=== PATIENT | female | born 1965 | race Caucasian/White ===

== ENCOUNTER 2020-11-06 17:30 | Outpatient (CLI) | payer OTHER, SELFPAY ==
--- NOTE | ~2020-11-06 | MM_ITS ---
EXAMINATION: MM screening [facility] BI w evelin HISTORY: Screening mammogram TECHNIQUE: Craniocaudal and mediolateral oblique 3-D tomosynthesis images were obtained and synthetic 2-D images were generated. CAD analysis was submitted and interpreted. COMPARISON: 10/04/2017, 03/03/2015, 02/07/2014 BREAST PARENCHYMAL COMPOSITION: The breasts are almost entirely fatty. FINDINGS: There is no evidence of suspicious mass, calcification, or architectural distortion to sugg est malignancy in either breast. There has been no suspicious interval change. IMPRESSION: 1. No mammographic evidence of malignancy. 2. Recommend routine screening mammography in one year. BI-RADS Category 1: Negative Reviewed, dictated and finalized at location A.
== END 2020-11-06 17:31 | disposition home or self-care (01) ==
LOC: ANHIMG 17:35
PROVIDERS: PCP Family Medicine; Visit Provider Obstetrics & Gynecology
DX: Z12.31 Encounter for screening mammogram for malignant neoplasm of breast (principal)
CPT/HCPCS: 77063; 77067

== ENCOUNTER 2022-02-26 17:09 | Emergency (ER) | payer OTHER, SELFPAY ==
--- NOTE | ~2022-02-26 | XR_ITS ---
XR ankle RT min 3V 02/26/2022 17:24 INDICATION: Right ankle pain after recent fall PROCEDURE: 4 views right ankle COMPARISON: No prior studies for comparison. FINDINGS: Fracture, dislocation or subluxation is not identified. There are degenerative calcaneal en thesophytes. Talar dome is unremarkable. The soft tissues appear within normal limits. No foreign bernarda dies are identified. IMPRESSION: 1: NO ACUTE BONE OR JOINT ABNORMALITY IDENTIFIED. Reviewed, dictated and finalized at location A.
[2022-02-26 17:07] VITALS: BP 159/84; PULSE 76; RESP 18; TEMP 36.9; O2SAT 99
--- NOTE | 2022-02-26 17:16 | ED_ITS ---
HPI - Extremity Injury (Lower) General Chief Complaint: Extremity Injury, Lower Stated Complaint: fall - ankle pain Time Seen by Provider: 02/26/22 17:11 History of Present Illness HPI Narrative: 56-year-old female presents to the emergency room for evaluation of right ankle pain. Patient states that she stepped on a large rock outside of her place of employment and felt a popping sensation. Patient dates she is unable to walk following the injury. Pain is worse with attempting to ambulate or put pressure on the foot. Pain radiates into her foot. Related Data Allergies Allergy/AdvReac Type Severity Reaction Status Date / Time ciprofloxacin Allergy Unknown Nervousness Unverified 02/26/22 17:33 meperidine AdvReac Mild NAUSEA Verified 02/26/22 17:33 Review of Systems Review of Systems: CONSTITUTIONAL: Denies fever, chills, or sweats. EYES: Denies visual changes, redness, or discharge. ENT: Denies rhinorrhea, congestion, sore throat, or otalgia. CARDIOVASCULAR: Denies chest pain, palpitations, or edema. RESPIRATORY: Denies cough or dyspnea. GASTROINTESTINAL: Denies abdominal pain, nausea, vomiting, or diarrhea. GENITOURINARY: Denies dysuria or hematuria. SKIN: Denies rash or itching. MUSCULOSKELETAL: Reports right ankle pain NEUROLOGIC: Denies headache, numbness, dizziness, or weakness. PSYCHIATRIC: Denies anxiety or depression. Exam Narrative: GENERAL: Well-appearing, well-nourished, no physical limitations, and in no acute distress. HEAD: Normocephalic, atraumatic. EYES: Conjunctivae normal, PERRLA and EOMI. CHEST: Clear to auscultation. No respiratory distress. No wheezes rales or rhonchi. HEART: Regular rate and rhythm. No murmur heard. Normal peripheral pulses. EXTREMITIES: Right ankle: +TTP and STS to lateral malleolus. No obvious bony abnormality. Neurovascular is intact distally. Range of motion is limited due to pain SKIN: Warm, dry, no rash. No noted wounds NEURO: No focal deficits. Alert and oriented x3. MAEW. CN's II-XI intact bilaterally PSYCH: Cooperative. Normal mood and affect. Course Vital Signs Vital signs: Vital Signs Temperature 36.9 C 02/26/22 17:07 Pulse Rate 76 02/26/22 17:07 Respiratory Rate 18 02/26/22 17:07 Blood Pressure 159/84 H 02/26/22 17:07 Pulse Oximetry 99 02/26/22 17:07 Oxygen Delivery Room Air 02/26/22 17:07 Temperature 36.9 C 02/26/22 17:07 Pulse Rate 76 02/26/22 17:07 Respiratory Rate 18 02/26/22 17:07 Blood Pressure 159/84 H 02/26/22 17:07 Pulse Oximetry 99 02/26/22 17:07 Oxygen Delivery Room Air 02/26/22 17:07 Discharge Plan Discharge Clinical Impression: Ankle sprain and strain Patient Disposition: Home, Self-Care Condition: Stable Instructions: Antibiotic Form Additional Instructions: Recommend obtaining a boot from [facility]. Wear the boot for comfort. If your pain does not begin to improve the end of next week, follow-up with orthopedics. Prescriptions: New naproxen 500 mg tablet 500 mg PO BID Qty: 20 0RF Follow-up/Referrals: Jesus Wisdom MD [Primary Care Provider] - Dharmesh Sibley MD [Physician] - Time of Disposition: 17:31
[2022-02-26] MEDS: KETOROLAC 30 MG/ML VIAL (*BKC) IV PUSH (17:35)
== END 2022-02-26 18:03 | disposition home or self-care (01) ==
PROVIDERS: Emergency Provider Nurse Practitioner Family; PCP Family Medicine
DX: S93.401A Sprain of unspecified ligament of right ankle, initial encounter (principal); X50.0XXA Overexertion from strenuous movement or load, initial encounter
CPT/HCPCS: 73610; 96374; 99284; J1885

== ENCOUNTER 2022-09-17 12:59 | Outpatient (CLI) | payer OTHER, SELFPAY ==
--- NOTE | ~2022-09-17 | MMUS_ITS ---
EXAMINATION: MM diagnostic [facility] BI w evelin, US breast LT limited HISTORY: Left breast pain behind nipple, possible left breast lump at 6:00 TECHNIQUE: ML, MLO and CC 3-D tomosynthesis images of both breasts were performed and synthetic 2-D i mages were generated. CAD analysis was submitted and interpreted. High resolution targeted left breas t ultrasound examination. Clinical complaint was performed. COMPARISON: 11/06/2020, 10/04/2017, 03/03/2015 bilateral screening mammogram examinations BREAST PARENCHYMAL COMPOSITION: The breasts are almost entirely fatty. FINDINGS: MAMMOGRAPHIC FINDINGS: No suspicious mass or architectural distortion, malignant calcification, skin thickening or retractio n or significant new or developing density is detected. ULTRASOUND: Real-time imaging was performed at the area of clinical complaint by patient of left breast lump at 6 :00. No suspicious mass or shadowing or other significant abnormality detected at this location. IMPRESSION: 1. No mammographic evidence of malignancy 2. Routine annual mammographic screening is recommended BI-RADS Category 1: Negative Reviewed, dictated and finalized at location A. IMPRESSION: 1. No mammographic evidence of malignancy 2. Routine annual mammographic screening is recommended BI-RADS Category 1: Negative
== END 2022-09-17 13:00 | disposition home or self-care (01) ==
LOC: ANHIMG 13:01
PROVIDERS: PCP Physician Assistant; Visit Provider Obstetrics & Gynecology
DX: N64.4 Mastodynia (principal)
CPT/HCPCS: 76642; 77062; 77066; G0279

== ENCOUNTER 2024-06-04 00:23 | Day surgery (SDC) | payer OTHER, SELFPAY ==
[2024-05-18 10:11] VITALS: BMI 40.2
[2024-06-04 13:28] VITALS: BP 144/77; PULSE 72; RESP 18; TEMP 35.9; O2SAT 97
[2024-06-04] MEDS: LACTATED RINGERS 1,000 ML 150 ML IV CONT (13:45)
--- NOTE | 2024-06-04 14:09 | P.PNAN_ITS ---
Anes - Initial Pre Proc Eval Procedure: Operation Date: 06/04/24 14:30 Proposed Procedures p Screening Colonoscopy - Fahad Zamorano MD Date/Time: 06/04/24 14:09 Surgeon: Fahad Zamorano MD Pre Op Diagnosis: screening colon, screening rectum Patient Data Age: 58 Gender: F Height: 1.6 m Weight: 100.4 kg Last Vital Signs Temp 96.6 F L 06/04/24 13:28 Pulse 72 06/04/24 13:28 Resp 18 06/04/24 13:28 BP 144/77 H 06/04/24 13:28 Pulse Ox 97 06/04/24 13:28 O2 Del Method Room Air 06/04/24 13:28 Allergies Allergy/AdvReac Type Severity Reaction Status Date / Time ciprofloxacin Allergy Unknown Nervousness Verified 06/04/24 13:25 meperidine AdvReac Mild NAUSEA Verified 06/04/24 13:25 Home Medications ?Medication ?Instructions ?Recorded ?Confirmed ?Type cetirizine 10 mg tablet 10 mg PO DAILY #90 tabs 07/13/22 06/04/24 Rx EstroGel 1.25 gram/actuation 1.25 g topical DAILY #50 grams 01/06/24 06/04/24 Rx (0.06%) transdermal gel pump (estradiol) escitalopram oxalate 10 mg tablet See Rx Instructions .Route 01/06/24 06/04/24 Rx .COMPLEX #90 tabs hydrochlorothiazide 12.5 mg tablet See Rx Instructions .Route 01/06/24 06/04/24 Rx .COMPLEX #90 tabs trospium 20 mg tablet See Rx Instructions .Route 01/06/24 06/04/24 Rx .COMPLEX #90 tabs Patient hx anesthesia problems: none Family hx anesthesia problems: none Results Review: All pre-operative results and documents have been reviewed as part of the pre- operative evaluation. [facility] Past Medical History Medical History Generalized anxiety disorder Hot flashes Hypertension Migraines Obstructive sleep apnea syndrome Prediabetes Stress incontinence of urine Surgical History Surgical History History of delivery 1989 History of removal of cyst R thumbnail 1975 Hx laparoscopic cholecystectomy 10/2007 S/P [facility] (total abdominal hysterectomy) 2012 Family History Family History Father Acute myocardial infarction Heart disease Mother Diabetes mellitus Grandparent Heart disease Social History Social History Smoking status: Never smoker Alcohol intake: current Drinks per week: 4 Substance use: current Substance use type: marijuana Lack of Transportation: No Lack of Food: Never True Current Housing: I Have Housing Concerned About Future Housing: No Difficulty Paying Gas/Electric Bills: No Difficulty Paying for Meds: No Currently Unemployed: No Education: Trade/Vocational Certificate Difficulty w/ Childcare or Family Care: No Living arrangements: with family Occupation/Education: occupation Gender identity (if verbalized by the patient): Female Sexual Orientation (if Verbalized by the Patient): Straight or Heterosexual Spiritual care concerns: No Anes - Eval Final PreProcedure Day of Procedure 06/04/24 14:09 Patient weight: morbidly obese Heart: regular rate and rhythm Lungs: clear to auscultation Airway: Mallampati scale class II Neurological: alert and oriented Last oral intake: >/= 8 hours ASA classification: III Emergent: no Anesthetic plan: proceed Anesthesia type and monitoring: general GIVS and standard monitoring Results Review: All pre-operative results and documents have been reviewed as part of the pre- operative evaluation. Informed Consent: The patient's anesthetic plan and its attendant risks and benefits were discussed with the patient/family/POA. Questions were solicited and answers provided to the satisfaction of the patient/family/POA.
--- NOTE | 2024-06-04 14:13 | PM.HPGS ---
History of Present Illness History of Present Illness Consent: Risks, benefits, and alternatives have been discussed and questions answered. Patient agrees to proceed with procedure. Chief complaint: screening colon Narrative: Linn Gamez is a 58 year old female here for colonoscopy, half brother had colon cancer and last colonoscopy ~ 8 years ago Review of Systems Review of Systems: All systems reviewed & are unremarkable except as noted in HPI and below PMFSH Past Medical History Medical History (Updated 06/04/24 @ 14:14 by Fahad Zamorano MD) Family history of colon cancer Stress incontinence of urine Obstructive sleep apnea syndrome Hot flashes Migraines Generalized anxiety disorder Prediabetes Hypertension Surgical History Surgical History S/P [facility] (total abdominal hysterectomy) 2012 Hx laparoscopic cholecystectomy 10/2007 History of removal of cyst R thumbnail 1975 History of delivery 1989 Family History Family History Father Acute myocardial infarction Heart disease Mother Diabetes mellitus Grandparent Heart disease Social History Social History Smoking status: Never smoker Alcohol intake: current Drinks per week: 4 Substance use: current Substance use type: marijuana Lack of Transportation: No Lack of Food: Never True Current Housing: I Have Housing Concerned About Future Housing: No Difficulty Paying Gas/Electric Bills: No Difficulty Paying for Meds: No Currently Unemployed: No Education: Trade/Vocational Certificate Difficulty w/ Childcare or Family Care: No Living arrangements: with family Occupation/Education: occupation Gender identity (if verbalized by the patient): Female Sexual Orientation (if Verbalized by the Patient): Straight or Heterosexual Spiritual care concerns: No Meds Home Medications and Allergies Home Medications ?Medication ?Instructions ?Recorded ?Confirmed ?Type cetirizine 10 mg tablet 10 mg PO DAILY #90 tabs 07/13/22 06/04/24 Rx EstroGel 1.25 gram/actuation 1.25 g topical DAILY #50 grams 01/06/24 06/04/24 Rx (0.06%) transdermal gel pump (estradiol) escitalopram oxalate 10 mg tablet See Rx Instructions .Route 01/06/24 06/04/24 Rx .COMPLEX #90 tabs hydrochlorothiazide 12.5 mg tablet See Rx Instructions .Route 01/06/24 06/04/24 Rx .COMPLEX #90 tabs trospium 20 mg tablet See Rx Instructions .Route 01/06/24 06/04/24 Rx .COMPLEX #90 tabs Allergies Allergy/AdvReac Type Severity Reaction Status Date / Time ciprofloxacin Allergy Unknown Nervousness Verified 06/04/24 13:25 meperidine AdvReac Mild NAUSEA Verified 06/04/24 13:25 Vital Signs Vital Signs - 24 hr 06/04/24 13:28 Temperature 96.6 F L Pulse Rate 72 Respiratory Rate 18 Blood Pressure 144/77 H Pulse Oximetry 97 Oxygen Delivery Room Air Exam Const: General: comfortable and no acute distress HENMT: Face/Nose/Sinus: Normal nares present Eyes: General: appearance normal, both eyes and all related structures Neck: Neck: no JVD Resp: Auscultation: clear to auscultation bilaterally Cardio: Rate: regular rate Rhythm: regular rhythm GI: Inspection: non-distended GI Palp: Yes Soft to palpation Skin: General skin exam: normal color Neuro: General: gait normal Speech: normal speech Extrem: General: normal to inspection Psych: Mental Status: mental status grossly normal Assessment and Plan Assessment and plan (1) Family history of colon cancer: Code(s): Z80.0 - Family history of malignant neoplasm of digestive organs Status: Acute Assessment and Plan: colonoscopy
[2024-06-04 14:40] VITALS: BP 119/52; PULSE 62; RESP 25; O2SAT 97
[2024-06-04 14:50] VITALS: BP 129/73; PULSE 63; RESP 17; O2SAT 100
[2024-06-04 15:00] VITALS: BP 125/62; PULSE 60; RESP 16; O2SAT 99
== END 2024-06-04 15:10 | disposition home or self-care (01) ==
PROVIDERS: PCP Family Medicine; Referring Provider Physician Assistant; Visit Provider Internal Medicine Gastroenterology
PROC: 0DJD8ZZ Inspection of Lower Intestinal Tract, Via Natural or Artificial Opening Endoscopic (ICD-10-PCS; CPT 45378; principal; 2024-06-04 14:30)
DX: Z12.11 Encounter for screening for malignant neoplasm of colon (principal); R73.03 Prediabetes; I10 Essential (primary) hypertension; N39.3 Stress incontinence (female) (male); G47.33 Obstructive sleep apnea (adult) (pediatric); F41.9 Anxiety disorder, unspecified; F12.90 Cannabis use, unspecified, uncomplicated; E66.01 Morbid (severe) obesity due to excess calories; Z68.39 Body mass index [BMI] 39.0-39.9, adult; Z98.890 Other specified postprocedural states; Z90.49 Acquired absence of other specified parts of digestive tract; Z80.0 Family history of malignant neoplasm of digestive organs; Z82.49 Family history of ischemic heart disease and other diseases of the circulatory system
CPT/HCPCS: 45378; J2003; J2704; J7120

== ENCOUNTER 2024-08-24 14:20 | Outpatient (CLI) | payer OTHER, SELFPAY ==
--- OUTSIDE RECORDS SUMMARY | 2024-08-24 14:22 | XMS_ITS | Clinical Summary ---
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 Phone Unavailable Primary Care Provider Unavailabl e Social History Tobacco Use Types Packs/Day Years Used Date Smoking Tobacco: Never Assessed Comments Unknown Sex and Gender Information Value Date Recorded Sex Assigned at Not on file Legal Sex Female 7:10 PM CDT Gender Identity Not on file Sexual Orientation Not on file Plan of Treatment Health Maintenance Due Date Last Done Comments Cervical Cancer Screening Pa p Smear (Age 30 to 64) Every 3 Years 1966 Colorectal Cancer Screening Colonoscopy (10 Years) 1966 Annual Physical 1969 Hepatitis C 1984 DTaP, Tdap and Td Vaccines ( 1 - Tdap) 1985 Hepatitis B Vaccines (1 of 3 - 19+ 3-dose series) 1985 Cervical Cancer Screening Pa p with HPV Testing (Age 30 to 64) Every 5 Years 1996 Cervical Cancer Screening with HPV 1996 Mammogram Screening 2006 Zoster Vaccines (1 of 2) 2016 COVID-19 Vaccine (2023-2 5 season) 2024 Influenza Adult (#1) 2024 Meningococcal B Vaccine Aged Out No l onger eligible based on patient's age to complete this topic Meningococcal Vaccine Aged Out No shahzad delores eligible based on patient's age to complete this topic Pneumococcal Vaccine: Pediat rics (0 to 5 Years) and At-Risk Patients (6 to 64 Years) Aged Out No longer eligible b ased on patient's age to complete this topic RSV Immunizations Under 20 Months Aged Out No longer eligible based on patient's age to complete this topic
--- OUTSIDE RECORDS SUMMARY | 2024-08-24 14:22 | XMS_ITS | Continuity of Care Document ---
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, [address], [place], [place], [id number], [place] tel:[phone] [facility] No Information [phone] Nancie Bonilla. [address] , [address], [place], [address], [place]. tel:[phone] Family History Family Member Type Diagnosis Age At Onset No Information Payers Payer name Insurance type Covered democrat ID Authoriza tion(s) No Information Social History Type Description Quantity Date Captured Comments Sex Female Smoking Status No Information Chief Complaint And Reason For Visit No Information Reason For Referral Reason For Referral No Information History Of Present Illness Encounter Date Complaint History Of Prese nt Illness No Information Functional Status Date Functional Assessmen t No Information Instructions Date Instruction Additional Infor mation No Information Assessments Type Assessment Date No Information Patient Care Teams Name Effective Dates (start - stop) Status Members No Information
== END 2024-08-24 14:21 | disposition home or self-care (01) ==
LOC: ANHAUDIO 14:21
PROVIDERS: PCP Family Medicine; Visit Provider Family Medicine
DX: H90.3 Sensorineural hearing loss, bilateral (principal); H93.13 Tinnitus, bilateral
CPT/HCPCS: 92557; 92567